=== PATIENT | female | born 1960 | race Caucasian/White ===

== ENCOUNTER 2022-01-05 10:35 | Emergency (ER) | payer OTHER ==
[~2022-01-05 10:35] MED LIST: ANTIVERT25 MG PO; FLOMAX 0.4 MG0.4 MG PO; ONDANSETRON ODT4 MG SL; PERCOCET 5-3251 EACH PO; PHOSLO667 MG PO; VENTOLIN HFA IN18 GM INH; ZOFRAN4 MG PO; ZOLOFT50 MG PO
[2022-01-05 11:10] LABS: BASOPHIL 0.7 % (0-2); BILIRUBIN NEGATIVE (NEGATIVE); BLOOD TRACE-INTACT Ery/uL (NEGATIVE); CLARITY CLEAR (CLEAR); COLOR YELLOW (YELLOW); EOSINOPHIL 1.1 % (0-5); GLUCOSE (U) NORMAL (NORMAL); HCT 40.5 % (37.0-47.0); HGB 13.4 g/dl (12.5-16.0); LEUKOCYTES NEGATIVE Leu/uL (NEGATIVE); MCH 32.4 pg (25.0-31.0); MCHC 33.1 g/dL (32.0-36.0); MCV 97.8 fL (78.0-100.0); MONOCYTE 11.4 % (0-12); MPV 9.8 fL (6.0-9.5); NEUTROPHIL 66.9 % (41-80); NITRITE NEGATIVE (NEGATIVE); NRBC 0; PLT 219 K/uL (150-400); PROTEIN NEGATIVE (NEGATIVE); RBC 4.14 M/uL (4.20-5.40); RDW 12.3 % (11.5-14.0); UROBILINOGEN 0.2 mg/dL (0.2-1.0); WBC 4.5 K/uL (4.0-10.5)
[2022-01-05 11:23] LABS: ALBUMIN 4.1 g/dL (3.4-5.0); BACTERIA TRACE; BILIRUBIN - TOTAL 0.6 mg/dL (0.2-1.0); BUN/CREAT RATIO (CALC) 26.7 RATIO; CREATININE 0.86 mg/dL (0.51-0.95); POTASSIUM 3.7 mmol/L (3.5-5.1); TOTAL PROTEIN 7.1 g/dL (6.4-8.2)
[2022-01-05] MEDS ORDERED: ONDANSETRON ODT4 MG PO (11:54)
[2022-01-05] MEDS ORDERED: OXY-IR 5MG5 MG PO (11:54)
== END 2022-01-05 12:18 | disposition home or self-care (01) ==
LOC: FER 10:35
PROVIDERS: Emergency Medicine
DX: N20.0 Calculus of kidney (principal); I88.0 Nonspecific mesenteric lymphadenitis; E11.9 Type 2 diabetes mellitus without complications; Z88.0 Allergy status to penicillin; Z88.8 Allergy status to other drugs, medicaments and biological substances
CPT/HCPCS: 36415; 80053; 81001; 85025; J1170; J1885; J2405; J7030